=== PATIENT | male | born 1970 | race Caucasian/White ===

== ENCOUNTER 2017-02-16 13:47 | Emergency (ER) | payer SELFPAY ==
[2017-02-16 14:05] VITALS: BP 152/85
[2017-02-16] MEDS ORDERED: Tetracaine 0.5% OPTH.SOL 4 ML* 1 DROP BTL ONE (14:39)
[2017-02-16] MEDS ORDERED: Fluorescein Sodium TOPICAL* 1 MG TEST ONE (14:43)
--- NOTE | 2017-02-16 15:00 | UC ---
Eye Complaint HPI - HPI Summary HPI Summary: 46 yo male was at work when a hilario of wind blew a particle into his eye was working on a car fb sensation under lid (left eye /upper) - History of Current Complaint Chief Complaint: UCEye Stated Complaint: FOREIGN BODY LEFT EYE Time Seen by Provider: 02/16/17 14:36 Hx Obtained From: Patient Onset/Duration: Sudden Onset, Lasting Hours Timing: Constant Severity Initially: Moderate Severity Currently: Moderate Pain Intensity: 4 Pain Scale Used: 0-10 Numeric Location of Injury: Eye Lid (upper) Character: Foreign Body Sensation Aggravating Factor(s): Nothing Alleviating Factor(s): Nothing Associated Signs And Symptoms: Positive: Negative Related History: Foreign Body Eyes: 1 - muliple minute parallel corneal abrasion noted with flouresein staining - Risk Factors Penetrating Injury Risk Factor: Negative Globe Rupture Risk Factors: Negative Acute Glaucoma Risk Factors: Negative Optic Artery Occlusion Risk Factors: Negative - Allergies/Home Medications Allergies/Adverse Reactions: Allergies Allergy/AdvReac Type Severity Reaction Status Date / Time Penicillins Allergy Hives Verified 02/16/17 14:06 Home Medications: Home Medications Aspirin TAB* [Aspirin 325 MG TAB*] 650 mg PO Q12H PRN 02/16/17 [History Confirmed 02/16/17] PMH/Surg Hx/FS Hx/Imm Hx Previously Healthy: Yes - Surgical History Surgical History: None - Family History Known Family History: Positive: Hypertension - Social History Alcohol Use: Weekly Alcohol Amount: 2 Substance Use Type: None Smoking Status (MU): Current Some Day Smoker - Immunization History Most Recent Tetanus Shot: UNKNOWN Review of Systems Constitutional: Negative Skin: Negative Eyes: Other - left eye fb ENT: Negative Respiratory: Negative Cardiovascular: Negative Gastrointestinal: Negative Genitourinary: Negative Motor: Negative Neurovascular: Negative Musculoskeletal: Negative Neurological: Negative Psychological: Negative All Other Systems Reviewed And Are Negative: Yes Physical Exam Triage Information Reviewed: Yes Appearance: Well-Appearing, No Pain Distress, Well-Nourished Vital Signs: Initial Vital Signs Temp 98.6 F 02/16/17 13:58 Pulse 87 08/30/17 13:58 Resp 18 02/16/17 13:58 BP 152/85 02/16/17 13:58 Eyes: Positive: Conjunctiva Inflamed - left, Other: - minute fb noted under left upper eyelid ENT: Positive: Hearing grossly normal. Negative: Nasal congestion, Nasal drainage, Tonsillar exudate, Trismus, Muffled/hoarse voice Dental: Negative: Gross Decay/Caries @ Neck: Positive: Supple, Nontender, No Lymphadenopathy Respiratory: Positive: Lungs clear, Normal breath sounds, No respiratory distress, No accessory muscle use Cardiovascular: Positive: RRR, No Murmur Abdomen Description: Positive: No Organomegaly, Soft. Negative: CVA Tenderness (R), CVA Tenderness (L) Musculoskeletal: Positive: ROM Intact, No Edema Neurological: Positive: Alert, Muscle Tone Normal Psychological Exam: Normal Skin Exam: Normal Procedures - Eye Procedure Alcaine Drops Administered: No - 2 drop teracaine left eye -applied by me Eye FB Removal: removal w/ cotton swab, other - under left upper lid Eye Complaint Course/Dx - Differential Dx/Diagnosis Provider Diagnoses: left upper eyelid foreign body- removed. left corneal abrasions due to FB Discharge - Discharge Plan Condition: Stable Disposition: HOME Prescriptions: Polymyx/Trimethoprim OPTH* [Polytrim OPHTH*] 1 - 2 drop LEFT EYE QID #1 btl Patient Education Materials: Corneal Abrasion (ED), Eye Foreign Body (ED) Referrals: Andrew Robins PA [Primary Care Provider] - Additional Instructions: a minute foreign body was removed from your eye please return in AM so we can re-stain and reexamine your eye ( unless it is completely better)
== END 2017-02-16 15:23 | disposition home or self-care (01) ==
LOC: UCCORT 13:47
DX: T15.82XA Foreign body in other and multiple parts of external eye, left eye, initial encounter (principal); H02.814 Retained foreign body in left upper eyelid; Z18.89 Other specified retained foreign body fragments; W20.8XXA Other cause of strike by thrown, projected or falling object, initial encounter; Y99.0 Civilian activity done for income or pay
CPT/HCPCS: 99202; A9270-GY; G0463